=== PATIENT | male | born 1965 | race Caucasian/White ===

== ENCOUNTER 2016-08-14 10:41 | Inpatient (IN) | payer MEDICARE, MEDICAID ==
[~2016-08-14] VITALS: Ht 188 cm; Wt 136.7 kg
[2016-08-14] MEDS ORDERED: ACETAMINOPHEN 325 MG TAB PO PRN (13:35)
[2016-08-14] MEDS ORDERED: ONDANSETRON 4 MG VIAL IV PUSH PRN (13:35)
[2016-08-14 13:46] VITALS: BP_SYST 142; RESP 20; TEMP 97.5
[2016-08-14 13:48] VITALS: Ht 188 cm; Wt 136.7 kg
[2016-08-14] MEDS ORDERED: DUONEB INH ONE (14:12)
[2016-08-14 14:33] VITALS: RESP 18
[2016-08-14] MEDS: DUONEB INH SCH ×2 (14:33→18:24)
[2016-08-14] MEDS ORDERED: SODIUM CHLORIDE 0.9% 1,000 ML IV SCH (15:40)
[2016-08-14] MEDS: LEVEMIR INSULIN SUBQ SCH (17:30)
[2016-08-14] MEDS: METOPROLOL XL 25 MG TAB PO SCH (17:31)
[2016-08-14] MEDS: GABAPENTIN 100 MG CAP PO SCH ×2 (17:32→20:14)
[2016-08-14 19:30] VITALS: BP_SYST 116; RESP 20; TEMP 97.7
[2016-08-14] MEDS: APIXABAN 2.5 MG TAB PO SCH (20:13)
[2016-08-15] MEDS: DUONEB INH SCH ×3 (00:08→12:30)
[2016-08-15 02:47] VITALS: BP_SYST 134; RESP 16; TEMP 97.6
[2016-08-15 07:59] VITALS: BP_SYST 128; RESP 20; TEMP 97.5
[2016-08-15] MEDS: APIXABAN 2.5 MG TAB PO SCH (08:07)
[2016-08-15] MEDS: METOPROLOL XL 25 MG TAB PO SCH (08:08)
[2016-08-15] MEDS: GABAPENTIN 100 MG CAP PO SCH (08:08)
[2016-08-15] MEDS: LEVEMIR INSULIN SUBQ SCH (08:09)
[2016-08-15 11:35] VITALS: BP_SYST 137; RESP 20; TEMP 98.2
[2016-08-15 11:40] VITALS: BP_SYST 137; RESP 20; TEMP 98.2
== END 2016-08-15 14:25 | disposition home or self-care (01) | DRG 640 ==
LOC: ENRESERVTM → ENRESERVDT → 4THE 13:14 → ENPENDDIS 13:14
PROVIDERS: ADMIT Internal Medicine Nephrology; ATTEND Internal Medicine Nephrology
PROC: 5A1D00Z (ICD-10-PCS; principal; 2016-08-14)
DX: E87.5 Hyperkalemia (principal); N18.6 End stage renal disease; I13.2 Hypertensive heart and chronic kidney disease with heart failure and with stage 5 chronic kidney disease, or end stage renal disease; E11.22 Type 2 diabetes mellitus with diabetic chronic kidney disease; Z79.01 Long term (current) use of anticoagulants; E78.5 Hyperlipidemia, unspecified; T38.3X6A Underdosing of insulin and oral hypoglycemic [antidiabetic] drugs, initial encounter; Z91.128 Patient's intentional underdosing of medication regimen for other reason; Z99.2 Dependence on renal dialysis; E11.40 Type 2 diabetes mellitus with diabetic neuropathy, unspecified; E11.43 Type 2 diabetes mellitus with diabetic autonomic (poly)neuropathy; K31.84 Gastroparesis; E11.319 Type 2 diabetes mellitus with unspecified diabetic retinopathy without macular edema; G47.33 Obstructive sleep apnea (adult) (pediatric); K21.9 Gastro-esophageal reflux disease without esophagitis; M10.9 Gout, unspecified; I25.10 Atherosclerotic heart disease of native coronary artery without angina pectoris; Z86.718 Personal history of other venous thrombosis and embolism; E66.9 Obesity, unspecified; Z68.38 Body mass index [BMI] 38.0-38.9, adult; R07.9 Chest pain, unspecified; I50.9 Heart failure, unspecified
CPT/HCPCS: 82947; 94640; 94799